=== PATIENT | male | born 1995 | race African-American/Black ===

== ENCOUNTER 2022-02-09 00:14 | Day surgery (SDC) | payer BC ==
[2022-02-09] MEDS ORDERED: Ondansetron 4 MG/2 ML SDV IVPUSH ONE (01:09)
[2022-02-09] MEDS ORDERED: Glucagon,Human Recombinant 1 MG Vial IVPUSH ONE (01:09)
[2022-02-09] MEDS ORDERED: Famotidine 20 MG/2 ML SDV IVPUSH ONE (01:09)
[2022-02-09] MEDS ORDERED: Propofol 200 MG/20 ML SDV ONE (03:01)
[2022-02-09] MEDS ORDERED: Midazolam 1 MG/ML 2 ML SDV ONE (03:01)
[2022-02-09] MEDS ORDERED: Rocuronium 50 MG/5 ML Vial ONE (03:01)
[2022-02-09] MEDS ORDERED: Ondansetron 4 MG/2 ML SDV ONE (03:01)
[2022-02-09] MEDS ORDERED: fentaNYL 250 MCG/5 ML SDV ONE (03:01)
[2022-02-09] MEDS ORDERED: Lidocaine 1% 2 ML ONE (03:01)
[2022-02-09] MEDS ORDERED: Dexamethasone 4 MG/ML SDV ONE ×2 (03:48→03:49)
[2022-02-09] MEDS ORDERED: HYDROmorphone 0.5 MG/0.5 ML Syringe IVPUSH PRN (03:48)
[2022-02-09] MEDS ORDERED: fentaNYL 100 MCG/2 ML SDV IVPUSH PRN (03:48)
[2022-02-09] MEDS ORDERED: Ondansetron 4 MG/2 ML SDV IVPUSH PRN (03:48)
[2022-02-09] MEDS ORDERED: Succinylcholine/Sod PF 100 MG/5 ML SYRINGE IV ONE (03:50)
== END 2022-02-09 08:16 | disposition home or self-care (01) ==
LOC: JD.ED 00:14 → JD.SDS 02:28 → JD.OB 05:34 → JD.SDS 08:16
PROVIDERS: ATTEND Surgery
DX: T18.128A Food in esophagus causing other injury, initial encounter (principal)
CPT/HCPCS: 43247; 71045; 96374; 96375; 99284; J0330; J1100; J1610; J2250; J2405; J2704; J3010; J3490; 00731; 99140